=== PATIENT | male | born 1995 | race Caucasian/White ===

== ENCOUNTER 2023-05-12 20:58 | Emergency (ER) | payer OTHER, SELFPAY ==
[2023-05-12 20:58] VITALS: BMI 22.2
[2023-05-12 21:02] VITALS: BP 139/101
[2023-05-12 21:18] VITALS: BP 164/150
[2023-05-12 21:22] LABS: % Basophils 1.1 % (0-2); % Eosinophils 2.3 % (0-6); % Lymphocytes 36.9 % (20.5-51.1); % Monocytes 9.4 % (1.7-9.3); % Neutrophils 50.3 % (42.2-75.2); Absolute Basophils 0.1 10^3/uL (0-0.2); Absolute Eosinophils 0.2 10^3/uL (0-0.7); Absolute Lymphocytes 2.4 10^3/uL (1.2-3.4); Absolute Monocytes 0.6 10^3/uL (0.1-0.6); Absolute Neutrophils 3.3 10^3/uL (1.4-6.5); Hematocrit 39.3 % (39.0-52.0); Hemoglobin 13.5 g/dL (13.0-18.0); Mean Corp Hgb Conc. 34.4 g/dL (33.0-37.0); Mean Corpuscular Hgb 27.5 pg (27.0-31.0); Mean Platelet Volume 9.7 fL (7.4-10.4); Nucleated Red Blood Cells % 0 % (-); Platelet Count 297 10^3/uL (130-400); Red Blood Cell Count 4.91 10^6/uL (4.70-6.10); Red Cell Dist. Width 12.1 % (11.5-14.5); White Blood Cell Count 6.6 10^3/uL (4.8-10.8)
[2023-05-12 21:23] LABS: Urine Albumin Negative (Neg - Trace); Urine Bilirubin Negative (Negative); Urine Character Clear (Clear); Urine Color Yellow; Urine Glucose Negative (Negative); Urine Ketone Negative (Negative); Urine Leukocyte Negative (Negative); Urine Nitrite Negative (Negative); Urine Occult Blood Negative (Negative); Urine Urobilinogen Negative (Neg - 1+)
--- NOTE | 2023-05-12 21:45 | ED.GENMED ---
History of Present Illness
General
Chief Complaint: Abdominal Pain
Source: patient
Time Seen by Provider: 05/12/23 21:39
Travel History
Have you had any contact with someone who has COVID-19?: No
Do you have any symptoms of coronavirus? Fever > 100 degrees, chills, cough, shortness of breath, sore throat, loss of taste or smell, muscle aches, or headache?: No
History of Present Illness
History of Present Illness:
27-year-old male presents complaining of left flank pain onset 2 to 3 days ago. Notes that sharp and comes and goes in waves. He is from [facility]. He has a history of kidney stones. No fever. No nausea or vomiting. The pain radiates
from his left flank down to the left lower abdomen. No other complaints at this
Phy Exam
Physical Exam
Physical Exam:
General: Well-appearing male no acute respiratory distress
HEENT: Normocephalic atraumatic neck is supple
Heart: Regular rate and rhythm no murmur
Lungs: Clear to auscultation bilaterally no wheeze
Abdomen: Soft slightly tender in the left costovertebral angle. No guarding rebound normal bowel sounds mild left mid abdomen tenderness as well
Extremities: No cyanosis
Skin: Warm no rash
Course
Orders/Labs/Results
Orders:
Orders
05/12/23 21:12
IV Insert/Care/Rem.- Treatment PRN
Straight cath- Treatment ONCE
05/12/23 21:14
Complete Blood Count/With Diff Urgent
Comprehensive Metabolic Panel Urgent
Lipase Urgent
Urinalysis Reflex To Culture Urgent
Date Specimen was Collected: 05/12/23
Time Specimen was Collected: 21:12
05/12/23 21:45
CT Abd/pel Without Iv Or Oral Urgent
Comment:
Reason For Exam: left flank pain
Ketorolac [Toradol] 30 mg IV NOW STA
05/12/23 23:12
HYDROmorphone [Dilaudid] 0.5 mg IV NOW STA
Abnormal Lab Results
05/12/23
21:14
Monocytes % 9.4 H %
(1.7-9.3)
BUN 22 H mg/dl
(9-20)
05/12/23 21:14
05/12/23 21:14
Vital Signs
Initial and Last Documented VS:
Initial Vital Signs
Temp Pulse Resp BP Pulse Ox
98.4 F 84 18 139/101 98
05/12/23 21:02 05/12/23 21:02 05/12/23 21:02 05/12/23 21:02 05/12/23 21:02
Last Documented Vital Signs
Temp Pulse Resp BP Pulse Ox
98.4 F 84 18 131/94 96
05/12/23 21:02 05/12/23 21:02 05/12/23 21:02 05/12/23 22:00 05/12/23 22:30
MDM/Problems Addressed
Differential Diagnosis Includes:
Left flank pain. Differential could include musculoskeletal flank pain versus renal colic versus diverticulitis
No rash to suggest shingles.
Will check urine and labs. CT pending
*Critical Care Note
Total Time (30-74mins, 75-104mins- exclusive of procedures): Not Applicable
Update Note
Update Note:
CT of the abdomen negative. Labs reviewed without any finding. Patient has left flank pain. Suspect possible musculoskeletal flank pain. Stable for discharge back to long-term. He was given a dose of pain medicine prior to doing so. Recommend
follow-up and Tylenol
ED Attending Note
-
Portions of this chart may have been created with voice recognition software.� Occasional wrong word or��sound alike� substitutions may have occurred due to the inherent limitations of voice recognition software.
Discharge Plan
Departure
Patient Disposition: Home (Routine Discharge)
Date of Disposition: 05/12/23
Time of Disposition: 23:17
Patient with high blood pressure during this ER visit?: No
Discharge Problem:
Acute left flank pain
Instructions: Flank Pain ED
Prescriptions:
No Action
dextroamphetamine-amphetamine [Adderall] 15 mg Tablet
PO .3PM
dextroamphetamine-amphetamine [Adderall XR] 30 mg Capsule,Extended Release 24hr
30 mg PO DAILY
sertraline [Zoloft] 50 mg Tablet
50 mg PO DAILY
Referrals:
NONE,* [Family Provider] -
Activity Restrictions/Additional Instructions:
Workup here today was negative for any acute finding including urinary tract infection kidney stone or diverticulitis. You may use ibuprofen or Tylenol for pain. Return if worse otherwise
Interventions
Interventions:
*Risk Screen - Suicide Last Done: 05/12/23 21:02
*General Assessment Last Done: 05/12/23 21:23
*Neglect/Abuse Screening Last Done: 05/12/23 21:23
*ED COVID-19 Vaccine History Last Done: 05/12/23 21:23
KJ-Biywgl-Khljlubinq Assessment Last Done: 05/12/23 22:29
[2023-05-12 21:47] LABS: ALT (SGPT) 14 U/L (0-50); AST (SGOT) 20 U/L (17-59); Albumin 4.4 g/dl (3.5-5.0); Alkaline Phosphatase 73 U/L (38-126); Blood Urea Nitrogen 22 mg/dl (9-20); Calcium 9.3 mg/dl (8.4-10.2); Carbon Dioxide 26 mmol/L (22-30); Chloride 104 mmol/L (98-107); Glucose 88 mg/dl (70-99); Lipase 192 U/L (23-300); Potassium 4.3 mmol/L (3.5-5.1); Sodium 137 mmol/L (135-145); Total Bilirubin 0.5 mg/dl (0.2-1.3); Total Protein 7.1 g/dl (6.3-8.2); eGFR > 60.00
[2023-05-12] MEDS: TORADOL 30 MG IV (21:56)
[2023-05-12 22:00] VITALS: BP 131/94
[2023-05-12] MEDS: DILAUDID 0.5 MG IV (23:19)
== END 2023-05-12 23:40 | disposition home or self-care (01) ==
LOC: EMR 20:58
PROVIDERS: Physician Assistant; EMERGENCY PHYSICIAN Emergency Medicine
DX: R10.9 Unspecified abdominal pain (principal); Z87.442 Personal history of urinary calculi
CPT/HCPCS: 99284; 96374; 96375; 74176; 80053; 81003; 83690; 85025

== ENCOUNTER 2023-05-17 13:47 | Emergency (ER) | payer OTHER, SELFPAY ==
[2023-05-17 13:51] VITALS: BP 156/110
[2023-05-17 14:04] LABS: % Basophils 0.4 % (0-2); % Eosinophils 1.1 % (0-6); % Immature Granulocytes 0.3 % (0-0.5); % Lymphocytes 20.8 % (20.5-51.1); % Monocytes 8.5 % (1.7-9.3); % Neutrophils 68.9 % (42.2-75.2); Absolute Eosinophils 0.1 10^3/uL (0-0.7); Absolute Lymphocytes 1.5 10^3/uL (1.2-3.4); Absolute Monocytes 0.6 10^3/uL (0.1-0.6); Absolute Neutrophils 5.1 10^3/uL (1.4-6.5); Hematocrit 40.1 % (39.0-52.0); Hemoglobin 13.7 g/dL (13.0-18.0); Mean Corp Hgb Conc. 34.2 g/dL (33.0-37.0); Mean Corpuscular Hgb 27.9 pg (27.0-31.0); Mean Corpuscular Volume 81.7 fL (80.0-94.0); Nucleated Red Blood Cells % 0 % (-); Platelet Count 274 10^3/uL (130-400); Red Blood Cell Count 4.91 10^6/uL (4.70-6.10); Red Cell Dist. Width 12.2 % (11.5-14.5); White Blood Cell Count 7.4 10^3/uL (4.8-10.8)
[2023-05-17 14:26] LABS: ALT (SGPT) 18 U/L (0-50); AST (SGOT) 23 U/L (17-59); Albumin 4.6 g/dl (3.5-5.0); Alkaline Phosphatase 74 U/L (38-126); Blood Urea Nitrogen 17 mg/dl (9-20); Calcium 9.5 mg/dl (8.4-10.2); Carbon Dioxide 28 mmol/L (22-30); Chloride 104 mmol/L (98-107); Glucose 115 mg/dl (70-99); Potassium 4.6 mmol/L (3.5-5.1); Sodium 138 mmol/L (135-145); Total Bilirubin 0.5 mg/dl (0.2-1.3); Total Protein 7.5 g/dl (6.3-8.2); eGFR > 60.00
--- NOTE | 2023-05-17 14:43 | ED.GENMED ---
History of Present Illness
<CARLA Kumar - Last Filed: 05/18/23 15:53>
General
Chief Complaint: Change in Mental Status
Source: patient
Time Seen by Provider: 05/17/23 13:52
Nursing documentation reviewed up to this point in time: agreed with
Travel History
Have you had any contact with someone who has COVID-19?: No
Do you have any symptoms of coronavirus? Fever > 100 degrees, chills, cough, shortness of breath, sore throat, loss of taste or smell, muscle aches, or headache?: No
History of Present Illness
History of Present Illness:
Patient is a 27-year-old male from [facility] with history of anxiety ADHD depression sent for evaluation. Patient reports he was having shocks throughout his body forcing him to 'have convulsions.'
Presented reports the patient described having shocks throughout his body causing him to have convulsions. Longterm note states that 'Im having shocks throughout by body causing me to have convulsions. Patient denies any prior history of seizures.
Denies any recent illness fever chills. Patient was recently here 5 days ago for flank pain. He denies any pain now.
Review of Systems
<CARLA Kumar - Last Filed: 05/18/23 15:53>
Review of Systems
Allergies reviewed?: Yes
All Other Systems: ROS reviewed and negative except as documented in HPI and ROS
Constitutional: Reports no symptoms; Denies fever, fatigue or chills
EENT: Reports no symptoms
Respiratory: Reports no symptoms
Cardiac: Reports no symptoms
ABD/GI: Reports no symptoms
Musculoskeletal: Reports no symptoms
Skin: Reports no symptoms
Neurological: Reports other (pt reports he is having uncontrolled convulsions ' )
Psychiatric: Reports anxiety; Denies suicidal
Phy Exam
<CARLA Kumar - Last Filed: 05/18/23 15:53>
General Physical Exam
General Presentation: no apparent distress
General age: appears stated age
General Skin: warm and dry
General Habitus: normal
General Mental: alert
Cardiovascular Exam
Cardiovascular Exam: tachycardia
Pulmonary Exam
Pulmonary Exam: lungs clear and no respiratory distress
Neurological Exam
Neurological Exam: alert, oriented x3 and other (Patient with visible jerking movements however when asked to stop for exam patient voluntarily able to control movements )
Musculoskeletal Exam
Musculoskeletal Exam: full ROM
Skin Exam
Skin Exam: normal color and warm/dry
Psychiatric Exam
Psychiatric Exam: anxious
Course
<CARLA Kumar - Last Filed: 05/18/23 15:53>
Orders/Labs/Results
Orders:
Orders
05/17/23 13:58
Complete Blood Count/With Diff Urgent
Comprehensive Metabolic Panel Urgent
05/17/23 14:43
Electrocardiogram (*1) Stat
Reason for Study: Other
Other Reason for Exam: chest pain
EKG- Treatment ONCE
05/17/23 15:15
Lorazepam [Ativan] 0.5 mg IV NOW STA
05/17/23 15:55
UA Reflex to Culture [Urinalysis Reflex To Culture] Urgent
Date Specimen was Collected: 05/17/23
Time Specimen was Collected: 15:50
05/17/23 16:13
Crisis Consult Urgent
Reason for Consult: evaluation
05/17/23 16:28
Vital Signs- Treatment ONCE
Frequency: Once
Abnormal Lab Results
05/17/23
13:58
Glucose 115 H mg/dl
(70-99)
05/17/23 13:58
05/17/23 13:58
Vital Signs
Initial and Last Documented VS:
Initial Vital Signs
Temp Pulse Resp BP Pulse Ox
98.0 F 112 18 156/110 97
05/17/23 13:51 05/17/23 13:51 05/17/23 13:51 05/17/23 13:51 05/17/23 13:51
Last Documented Vital Signs
Temp Pulse Resp BP Pulse Ox
98.0 F 112 18 146/106 97
05/17/23 13:51 05/17/23 13:51 05/17/23 13:51 05/17/23 17:16 05/17/23 13:51
<Wellington Owusu, DO - Last Filed: 05/17/23 15:50>
Orders/Labs/Results
Orders:
Orders
05/17/23 13:58
Complete Blood Count/With Diff Urgent
Comprehensive Metabolic Panel Urgent
05/17/23 14:43
Electrocardiogram (*1) Stat
Reason for Study: Other
Other Reason for Exam: chest pain
EKG- Treatment ONCE
05/17/23 15:15
Lorazepam [Ativan] 0.5 mg IV NOW STA
05/17/23 15:55
UA Reflex to Culture [Urinalysis Reflex To Culture] Urgent
Date Specimen was Collected: 05/17/23
Time Specimen was Collected: 15:50
05/17/23 16:13
Crisis Consult Urgent
Reason for Consult: evaluation
05/17/23 16:28
Vital Signs- Treatment ONCE
Frequency: Once
Abnormal Lab Results
05/17/23
13:58
Glucose 115 H mg/dl
(70-99)
05/17/23 13:58
05/17/23 13:58
Vital Signs
Initial and Last Documented VS:
Initial Vital Signs
Temp Pulse Resp BP Pulse Ox
98.0 F 112 18 156/110 97
05/17/23 13:51 05/17/23 13:51 05/17/23 13:51 05/17/23 13:51 05/17/23 13:51
Last Documented Vital Signs
Temp Pulse Resp BP Pulse Ox
98.0 F 112 18 146/106 97
05/17/23 13:51 05/17/23 13:51 05/17/23 13:51 05/17/23 17:16 05/17/23 13:51
<CARLA Kumar - Last Filed: 05/18/23 15:53>
MDM/Problems Addressed
Differential Diagnosis Includes:
not limited to: Psychiatric condition, involuntary tremors less likely seizures
MDM/Problems Addressed:
Patient is a 27-year-old from senior [facility] who presents with complaints of tremor, jerking movements. He reported to nursing triage that he was having demons which are causing the tremors. Patient is voluntarily able to control the tremors. There is no
evidence of seizure activity he is in no acute distress he is stable labs. Case reviewed with ED physician. No concerning findings unremarkable workup. Patient was incidentally seen here several days ago for flank pain no complaints at this time
will DC back to Longterm
Chronic conditions affecting care:
ADHD anxiety depression
<CARLA Kumar - Last Filed: 05/18/23 15:53>
*Pulse Oximetry
Patient hypoxic: no
*EKG
Heart Rate: 95
Rate: normal
Rhythm: sinus
Ischemia: no ischemia
*Critical Care Note
Total Time (30-74mins, 75-104mins- exclusive of procedures): Not Applicable
ED Attending Note
<CARLA Kumar - Last Filed: 05/18/23 15:53>
-
Portions of this chart may have been created with voice recognition software.� Occasional wrong word or��sound alike� substitutions may have occurred due to the inherent limitations of voice recognition software.
<DO Pilar Teague Last Filed: 05/17/23 15:50>
ED Attending Note
Patient seen and examined by attending physician: Yes
I performed the substantive portion of visit, reviewed & personally made and approve the management plan that is documented in note by myself or MURRAY.: Yes
ED Attending Note:
Patient is a 27-year-old male who presents from present for shaking and jolts secondary to electrical impulses traversing his body. Patient has been seen for kidney stones and renal colic recently. Patient denies fever or chills. Patient is
stating that his holiness was not full and there is disruption of the menon silver linings. Patient has not had fever. Patient denies chest pain or shortness of breath. Patient denies nausea vomiting diarrhea. Patient states he has jolts through
his penis. Patient does not appear to be in any distress. Vital signs are stable. Will check a EKG as well as electrolytes and urine. Anticipate the patient being discharged back to the senior care. Will try low-dose Ativan. Patient is in need of
psychiatric evaluation.
Discharge Plan
Departure
Patient Disposition: Longterm
Date of Disposition: 05/17/23
Time of Disposition: 16:28
Patient with high blood pressure during this ER visit?: Yes
Condition: Fair
Covid-19: Not Applicable
Discharge Problem:
tremors
Prescriptions:
No Action
dextroamphetamine-amphetamine [Adderall] 15 mg Tablet
PO .3PM
dextroamphetamine-amphetamine [Adderall XR] 30 mg Capsule,Extended Release 24hr
30 mg PO DAILY
sertraline [Zoloft] 50 mg Tablet
50 mg PO DAILY
Referrals:
[facility] [Family Provider] -
Activity Restrictions/Additional Instructions:
Blood work was performed and negative here in the ER. Patient had a normal EKG and was able to stop shaking throughout the EKG. Patient was given 0.5 mg of of Ativan here in the ER. There are no acute findings. Urine is negative for blood.
Patient must be evaluated by physician in the next 1 to 2 days.
Interventions
Interventions:
*Risk Screen - Suicide Last Done: 05/17/23 13:54
*General Assessment Last Done: 05/17/23 15:30
*Neglect/Abuse Screening Last Done: 05/17/23 15:30
ED- Fall Risk Assessment Last Done: 05/17/23 15:30
*ED COVID-19 Vaccine History Last Done: 05/17/23 15:30
*Nursing Disposition Last Done: 05/17/23 17:16
ED- Pulmonary Assessment Last Done: 05/17/23 15:30
ED-Psychological Assessment Last Done: 05/17/23 15:30
ED- Neurological Assessment Last Done: 05/17/23 14:09
ED- Cardiac Assessment Last Done: 05/17/23 14:09
ED Swallowing Screen Last Done: 05/17/23 14:40
Discharge Date and Time
Discharge Date/Time: 05/17/23 17:16
[2023-05-17] MEDS: ATIVAN 0.5 MG IV (15:24)
[2023-05-17 16:13] LABS: Urine Albumin Negative (Neg - Trace); Urine Bilirubin Negative (Negative); Urine Character Clear (Clear); Urine Color Yellow; Urine Glucose Negative (Negative); Urine Ketone Negative (Negative); Urine Leukocyte Negative (Negative); Urine Nitrite Negative (Negative); Urine Occult Blood Negative (Negative); Urine Specific Gravity 1.015 (<1.030); Urine Urobilinogen Negative (Neg - 1+)
[2023-05-17 17:16] VITALS: BP 146/106
== END 2023-05-17 17:16 ==
LOC: EMR 13:47
PROVIDERS: Nurse Practitioner; EMERGENCY PHYSICIAN Emergency Medicine
DX: R25.1 Tremor, unspecified (principal); R10.9 Unspecified abdominal pain; R03.0 Elevated blood-pressure reading, without diagnosis of hypertension; F41.9 Anxiety disorder, unspecified; F32.A Depression, unspecified; F90.9 Attention-deficit hyperactivity disorder, unspecified type; Z87.442 Personal history of urinary calculi
CPT/HCPCS: 99284; 96374; 80053; 81003; 85025; 93005